=== PATIENT | female | born 1990 | race Caucasian/White ===

== ENCOUNTER 2017-01-23 12:27 | Emergency (ER) | payer OTHER ==
[~2017-01-23] VITALS: Wt 48.7 kg
[2017-01-23] MEDS ORDERED: MUPI15CR9 TOP (15:14)
[2017-01-23] MEDS ORDERED: SULF1TAB31 PO (15:14)
[2017-01-23] MEDS ORDERED: CLOT15CR TOP (15:14)
[2017-01-23] MEDS ORDERED: IBUP-1542 PO (15:16)
--- NOTE | 2017-01-23 15:28 | ERD ---
ER Documentation Chief Complaint Chief Complaint RASH ON PELVIC AREA X3 WEEKS HPI This is an otherwise healthy 26-year-old female who presents emergency department for complaints of a rash near her vaginal area 3 weeks. Patient states that initially she noticed what looked like a small pimple which became irritated and spread to a rash After shaving. She reports a 4 out of 10 burning pain with pressure to the area. She states no pain at rest. She denies any fever, chills, vaginal discharge or bleeding. She denies any new sexual partners and states that she has recently been screened for STDs. ROS All systems reviewed and are negative except as per history of present illness. Medications Home Meds Active Scripts Ibuprofen* (Motrin*) 600 Mg Tab, 600 MG PO Q6, #30 TAB Prov:JOSE VERDIN PA-C 01/23/17 Mupirocin Calcium* (Mupirocin*) 2% - 15 Gram Cream..g., 1 APPLIC TOP BID, #1 TUB Prov:JOSE VERDIN PA-C 01/23/17 Sulfamethoxazole/Trimethoprim* (Bactrim Ds* Tablet) 1 Each Tablet, 1 TAB PO BID for 7 Days, TAB Prov:JOSE VERDIN PA-C 01/23/17 Clotrimazole* (Jock Itch*) 15 Gm Cream..g., 1 APPLIC TOP BID for 7 Days, TUB alternate with mupirocin Prov:JOSE VERDIN PA-C 01/23/17 Allergies Allergies: Coded Allergies: No Known Allergy (Unverified , 01/23/17) PMhx/Soc History of Surgery: No Anesthesia Reaction: No Hx Neurological Disorder: No Hx Respiratory Disorders: No Hx Cardiac Disorders: No Hx Psychiatric Problems: No Hx Miscellaneous Medical Probl: No Hx Alcohol Use: No Hx Substance Use: No Hx Tobacco Use: No Physical Exam Vitals Vital Signs Date Time Temp Pulse Resp B/P Pulse Ox O2 Delivery O2 Flow Rate FiO2 01/23/17 12:35 98.3 78 19 127/82 98 Physical Exam Const:Well-developed, well-nourished, in no acute distress Head: Atraumatic Neck: Full range of motion..~ No meningismus. Resp: Clear to auscultation bilaterally Cardio: Regular rate and rhythm, no murmurs Abd: Soft, non tender, non distended. Normal bowel sounds Skin: Beefy red, swollen, rash to the anterior mons pubis region with multiple small satellite lesions extending to the right upper leg and inferiorly to the superior aspect of the right labia majora. There are no lesions on the inner aspect of the labia. No fluctuance or localized cyst. No active vaginal discharge. Back: No midline or flank tenderness Ext: No cyanosis, or edema Neur: Awake and alert Psych: Normal Mood and Affect Procedures/MDM This is a well-appearing, nontoxic 26-year-old female who presents for a rash to her pelvic area which was exacerbated by shaving. Patient reported mild pain and denied vaginal discharge, fever, chills or abdominal pain. STD screening was offered but refused by patient as she denied new sexual partners and reported recent screening at a clinic. Physical exam with evidence of a beefy red rash to the anterior aspect of the mons pubis region. There is no evidence of inner labial rash or vaginal discharge. Due to the patient's history, her symptoms are likely the result of acute folliculitis with secondary fungal infection. At this time low suspicion for HSV 2 or other viral etiology, TIA, genital warts, abscess, severe systemic illness or sepsis. Patient to begin topical anti-fungal and oral antibiotic therapy. Begin Motrin for pain control. Keep area clean and dry. Follow-up with primary care in 1-2 days or return here if symptoms worsen. Patient agrees with plan. Departure Diagnosis: Primary Impression: Rash Additional Impression: Folliculitis Condition: Good Patient Instructions: Folliculitis, Fungal Infection, Skin [General] Additional Instructions: Call your primary care doctor TOMORROW for an appointment during the next 1-2 days.See the doctor sooner or return here if your condition worsens before your appointment time. JOSE VERDIN PA-C Jan 23, 2017 15:28
== END 2017-01-23 15:49 | disposition home or self-care (01) ==
LOC: FTE 12:27
DX: R21 Rash and other nonspecific skin eruption (principal); L73.9 Follicular disorder, unspecified
CPT/HCPCS: 99284

== ENCOUNTER 2017-05-01 12:24 | Emergency (ER) | END 2017-05-01 15:39 | disposition home or self-care (01) ==